=== PATIENT | female | born 1980 ===

== ENCOUNTER 2023-04-21 11:41 | Outpatient (REF) | payer MEDICAID, SELFPAY ==
[2023-04-21 13:41] LABS: Hematocrit 41.1 % (37.0-47.0); Hemoglobin 13.4 g/dl (12.0-16.0); Mean Corpuscular HGB Conc 32.6 g/dl (31.0-35.0); Mean Corpuscular Hemoglobin 28.1 pg (27.0-33.0); Mean Corpuscular Volume 86.2 fL (80.0-98.0); Mean Platelet Volume 9.7 fL (9.4-12.3); Platelet Count 286 X10*3/uL (160-400); Red Blood Count 4.77 X10*6/uL (4.20-5.50); Red Cell Distribution Width 15.3 % (11.0-16.0); White Blood Count 9.7 X10*3/uL (4.8-10.8)
[2023-04-21 14:10] LABS: Alanine Aminotransferase 31 U/L (0-31); Albumin Level 4.3 g/dL (3.5-5.0); Alkaline Phosphatase 67 U/L (39-117); Anion Gap 12 (12-20); Aspartate Amino Transferase 24 U/L (5-31); Bilirubin Total 0.3 mg/dL (0.0-1.0); Blood Urea Nitrogen 12 mg/dL (9-16); Calcium 8.9 mg/dL (8.4-10.2); Carbon Dioxide 23 mmol/L (22-29); Chloride 106 mmol/L (96-108); Cholesterol 179 mg/dL (<200); Estimated Glomerular Filt Rate > 60; Glucose Random 88 mg/dL (60-115); HDL Cholesterol 52 mg/dL (>40); LDL Cholesterol Calculated 107 mg/dL (<100); Potassium 3.9 mmol/L (3.3-5.1); Sodium 137 mmol/L (135-145); Total Protein 7.4 g/dL (6.5-8.0); Triglycerides 103 mg/dL (<150)
[2023-04-21 14:29] LABS: TSH reflex Free T4 11.51 uIU/mL (0.32-4.0)
[2023-04-21 15:10] LABS: Estimated Average Glucose 103 mg/dL; Hemoglobin A1c % 5.2 % (<6.0)
[2023-04-21 16:53] LABS: CT PCR NOT DETECTED (Not Detect.); NG PCR NOT DETECTED (Not Detect.)
[2023-04-22 04:16] LABS: Syphilis Screen Nonreactive (Nonreactive)
[2023-04-22 04:31] LABS: HBS Num1 0.33 mIU/mL (0-7.99); HBc Num1 0.09 S/CO (0.00-0.79); HBsAGNum1 0.32 S/CO (0.00-0.99); HIV AB/AG Nonreactive (Nonreactive); HIV Num 1 0.05 S/CO (0.00-0.99); Hepatitis B Core Antibody Nonreactive (Nonreactive); Hepatitis B Surface Antigen Negative (Negative); ~HepC Num1 0.12 S/CO (0.00-0.79); ~Hepatitis B Surface Antibody NONREACTIVE (Nonreactive); ~Hepatitis C Antibody Nonreactive (Nonreactive)
[2023-04-24 11:49] LABS: TS Negative Control Passed; TS Panel A 1; TS Panel B 3; TS Positive Control Passed; TSpotTB Negative (Negative)
[2023-04-24 16:34] LABS: Rubeola IgG (Measles) >300.00 AU/mL
== END 2023-04-21 11:42 | disposition home or self-care (01) ==
LOC: HO.HHCL 11:41
PROVIDERS: Visit Provider Student in an Organized Health Care Education/Training Program
DX: Z00.00 Encounter for general adult medical examination without abnormal findings (principal); Z11.4 Encounter for screening for human immunodeficiency virus [HIV]; Z11.1 Encounter for screening for respiratory tuberculosis
CPT/HCPCS: 0353U; 36415; 80053; 80061; 83036; 84439; 84443; 85027; 86481; 86704; 86706; 86735; 86762; 86765; 86780; 86787; 86803; 87340; 87389

== ENCOUNTER 2023-11-15 08:05 | Outpatient (REF) | payer MEDICAID, SELFPAY ==
--- NOTE | ~2023-11-15 | XR_ITS ---
EXAMINATION: XR CHEST CLINICAL INFORMATION: Shortness of breath and wheezing after coated COMPARISON: None available. TECHNIQUE: 2 views of the chest were obtained. FINDINGS: The lungs are well-inflated. There is no gross pneumothorax. Heart size is normal. Mild dextroscoliosis of the thoracic spine. No focal consolidation. No pleural effusion. XR/XR chest 2V IMPRESSION: No evidence of pneumonia. Electronically signed by: Nazanin Sanderson MD 12/06/2023 09:15 AM EDT
[2023-11-15 12:00] LABS: TSH reflex Free T4 0.76 uIU/mL (0.32-4.0)
[2023-11-15 12:02] LABS: Free T4 (Free Thyroxine) 0.58 ng/dL (0.71-1.85); T4 Thyroxine 3.6 ug/dL (4.5-12.0); Thyroid Stimulating Hormone 1.05 uIU/mL (0.32-4.0)
[2023-11-16 18:43] LABS: Thyroid Peroxidase Antibodies >900 IU/mL (<9)
== END 2023-11-15 08:06 | disposition home or self-care (01) ==
LOC: HO.HHCL 08:05
PROVIDERS: Referring Provider Student in an Organized Health Care Education/Training Program; Visit Provider General Practice
DX: R79.89 Other specified abnormal findings of blood chemistry (principal); R06.02 Shortness of breath
CPT/HCPCS: 36415; 71046; 84436; 84439; 84443; 86376

== ENCOUNTER 2024-01-30 10:18 | Outpatient (REF) | payer MEDICAID, SELFPAY ==
[2024-01-30 12:21] LABS: TSH reflex Free T4 8.45 uIU/mL (0.32-4.0); Thyroid Stimulating Hormone 8.45 uIU/mL (0.32-4.0)
[2024-01-30 12:22] LABS: Free T4 (Free Thyroxine) 0.72 ng/dL (0.71-1.85)
[2024-02-01 02:34] LABS: Thyroglobulin Antibodies <1 IU/mL (< or = 1)
== END 2024-01-30 10:19 | disposition home or self-care (01) ==
LOC: HO.HHCL 10:18
PROVIDERS: General Practice; Visit Provider Student in an Organized Health Care Education/Training Program
DX: E03.8 Other specified hypothyroidism (principal); E06.3 Autoimmune thyroiditis; R79.89 Other specified abnormal findings of blood chemistry
CPT/HCPCS: 36415; 84439; 84443; 86800

== ENCOUNTER 2024-02-02 07:44 | Outpatient (REF) | payer MEDICAID, SELFPAY ==
--- NOTE | ~2024-02-02 | US_ITS ---
EXAMINATION: US ABDOMEN LIMITED CLINICAL INFORMATION: Abdominal wall for mass sensation above the umbilicus and the umbilical area. Question hernias. COMPARISON: None available. TECHNIQUE: Real-time imaging of the supraumbilical area. FINDINGS: Small defect in the anterior abdominal wall roughly 8 mm through which solid contents protruding from the abdomen into the subcutaneous fat likely a hernia roughly measure 3.7 x 3.7 x 1.1 cm. This can be confirmed by cross-sectional imaging CT scan or MRI. US/US abdomen limited IMPRESSION: Ultrasound confirm solid contents protruding from the abdomen into the subcutaneous fat likely a periumbilical hernia. This can be confirmed by cross-sectional imaging CT scan or MRI. Electronically signed by: Jenn Manrique MD 02/04/2024 05:46 PM RICHARD SERVIN
== END 2024-02-02 07:45 | disposition home or self-care (01) ==
LOC: HO.US 07:44
PROVIDERS: PCP Student in an Organized Health Care Education/Training Program; Visit Provider Student in an Organized Health Care Education/Training Program
DX: R19.09 Other intra-abdominal and pelvic swelling, mass and lump (principal)
CPT/HCPCS: 76705

== ENCOUNTER 2024-07-12 11:04 | Outpatient (REF) | payer MEDICAID, SELFPAY ==
--- NOTE | ~2024-07-12 | XR_ITS ---
EXAMINATION: XR LUMBOSACRAL SPINE CLINICAL INFORMATION: pt with ongoing lower back pain COMPARISON: None available. TECHNIQUE: Three views of the lumbosacral spine. FINDINGS: There is a minimal levoconvex scoliosis apex at L3. There is a normal lordosis. There is no subluxation. There are no fractures, compression deformities, or suspicious bone lesions. There is moderate disc space narrowing at L5-S1. Disc spaces otherwise appear preserved. Normal facet alignment. No soft tissue abnormalities. XR/XR lumbar spine 2-3V IMPRESSION: 1. No acute findings of the lumbar spine. 2. Moderate disc degeneration L5-S1. Electronically signed by: Shawn Weathers MD 07/12/2024 01:03 PM EDT
--- NOTE | ~2024-07-12 | XR_ITS ---
EXAMINATION: XR ABDOMEN 2 VIEWS SUPINE ERECT HISTORY: KIDNEY STONES COMPARISON: There are no prior studies for comparison. FINDINGS: Supine and upright views of the abdomen are submitted. The bowel gas pattern is unremarkable, without evidence of mechanical obstruction. There is no free intraperitoneal gas. No abnormal calcifications are identified. There are no abnormal soft tissue masses. The bones are intact. XR/XR abdomen min 2V IMPRESSION: No suspicious calcifications are identified. Electronically signed by: Omid Jenkins MD 07/12/2024 01:00 PM EDT
--- OUTSIDE RECORDS SUMMARY | 2024-07-12 11:54 | XMS_ITS | Encounter Summary ---
Author Organization [employer] Address [address] [facility] [address] [place] [address] Care Team Providers Care Bakery Clerk Name Role Phone Joann Perez MD Primary Care Pro vider Reason for Referral * Imaging (Routine) - Pending Review Specialty Diagnoses / Procedures Referred By Connie ramos Referred To Contact Cardiology Diagnoses BAH (dyspnea on exertion) Procedures Transthoracic Echo (TTE) Complete Joann Perez MD [address] [place] [address] Phone: tel: fax: [address] Phone: tel: fax: Referral ID Status Reason Start Date Expiration Date Visits Requested Visits Authorized [id number] Pending Review Perform Procedure 07/12/2024 07/12/2025 1 1 * Imaging (Routine) - Pending Review Specialty Diagnoses / Procedures Referred By Connie ramos Referred To Contact Radiology Diagnoses Right flank pain History of kidney stones Procedures US Retroperitoneal Complete Joann Perez MD [address] [place] [address] Phone: tel: fax: [address] Phone: tel: fax: Referral ID Status Reason Start Date Expiration Date V isits Requested Visits Authorized [id number] Pending Review 07/12/2024 07/12/2025 1 1 * Imaging (Routine) - Authorized Specialty Diagnoses / Procedures Referred By Contac t Referred To Contact Radiology Diagnoses Breast cancer screening by mammogram Procedures BI Mammogram Screening Tomosynthesis Bilateral Joann Perez MD [address] [place] [phone] Phone: tel: fax: [address] Phone: tel: fax: Referral ID Status Reason Start Date Expiration Date V isits Requested Visits Authorized [id number] Authorized 07/12/2024 07/12/2025 1 1 Reason for Visit * Reason Comments CHW - Office Visit Encounter Details Date Type Department Care Team (Late st Contact Info) Description 07/12/2024 9:30 AM EDT Office Visit [facility] [address] [place] [address] [phone] Joann Perez MD [address] [place] [address] [phone] Breast cancer screening by mammogram (Primary Dx); Dietary counseling; Exercise counseling; Right flank pain; History of kidney stones; Chronic low back pain without sciatica, unspecified back pain laterality; BAH (dyspnea on exertion) Social History Tobacco Use Types Packs/Day Years Used Date Smoking Tobacco: Never Passive Smoke Exposure: Never Smokeless Tobacco: Never Alcohol Use Standard Drinks/Week Comments Yes 0 (1 standard drink = 0.6 oz pur e alcohol) social Depression Answer Date Recorded Patient Health Questionnaire-9 Score 6 01/30/2024 Patient Health Questionnaire-9 Score 6 01/30/2024 Last PHQ-9: Questionnaire Data Not on file 1 03/31/2023 Housing Stability Answer Date Recorded What is your housing situation today? I have jay mccoy 01/22/[address] you li ve. Do you have problems with any of the following? None of the above 01/22/2024 Food Insecurity Answer Date Recorded Within the past 12 months, y ou worried that your food would run out before you got money to buy more: Sometimes True 2023 Within the past 12 months,th e food you bought just didn't last and you didn't have enough money to get more: Sometimes True 01/22/2024 Transportation Answer Date Recorded In the past 12 months, has l ack of transportation kept you from medical appts, meetings, work or from getting things needed for daily living? No 01/22/2024 Utilities Answer Date Recorded In the past 12 months, has t he electric, gas, oil or water company threatened to shut off services in your home? No 01/22/2024 Depression Answer Date Recorded Patient Health Questionnaire-2 Score 2 01/30/2024 Internet Access Answer Date Recorded Internet Access Q1 Yes 01/22/2024 Internet Access Q2 Not on file 01/22/2024 Comments No Sex and Gender Information Value Date Recorded Sex Assigned at Female 03/03/2023 11:48 AM EST Legal Sex Female 3:13 PM EDT Gender Identity Female 03/03/2023 11:48 AM EST Sexual Orientation Straight 03/16/2023 2: 10 PM EST documented as of this encounter Last Filed Vital Signs Vital Sign Reading Time Taken Comments Blood Pressure 128/73 07/12/2024 9:23 AM EDT Pulse 84 07/12/2024 9:23 AM EDT Temperature 36.3 ??C (97.3 ??F) 07/12/2024 9:23 AM ED T Respiratory Rate 20 07/12/2024 9:23 AM EDT Oxygen Saturation 98% 07/12/2024 9:23 AM EDT Inhaled Oxygen Concentration - - Weight 90.3 kg (199 lb) 07/12/2024 9:23 AM EDT Height 163.8 cm (5' 4.5 ) 07/12/2024 9:23 AM EDT Body Mass Index 33.63 07/12/2024 9:23 AM EDT documented in this encounter Plan of Treatment Upcoming Encounters Date Type Department Care Team (Late st Contact Info) Description 08/09/2024 9:45 AM EDT Office Visit [facility] [address] [place], [place] [phone] Joann Perez MD [address], [place] [phone] 09/17/2024 9:45 AM EDT Office Visit [facility] [address] [place], [place] [phone] Joann Preez MD [address], [place] [phone] Scheduled Orders Name Type Priority Associated Diagnoses Order Schedule BI Mammogram Screening Tomosynthesis Bilateral Imaging Routine Breast cancer screening by mammogram Expected: 07/12/2024, Expires: 09/11/2025 XR Lumbar Spine 2-3 Views Imaging Routine Chronic low back pain without sciatica, unspecified back pain laterality Expected: 07/12/2024, Expires: 07/12/2025 US Retroperitoneal Complete Imaging Routine Right flank pain History of kidney stones Expected: 07/12/2024, Expires: 07/12/2025 XR Abdomen 2 Views Supine and Decubitus Imaging Routine Right flank pain History of kidney stones Expected: 07/12/2024, Expires: 07/12/2025 Urinalysis Complete Lab Routine History of kidney stones Expected: 07/12/2024 (Approximate), Expires: 07/12/2025 Transthoracic Echo (TTE) Complete Echocardiography Routine BAH (dyspnea on exertion) Expected: 07/12/2024 (Approximate), Expires: 07/12/2026 CBC Lab Routine BAH (dyspnea on exertion) Expected: 07/12/2024 (Approximate), Expires: 07/12/2025 Comprehensive Metabolic Panel Lab Routine BAH (dyspnea on exertion) Expected: 07/12/2024 (Approximate), Expires: 07/12/2025 T4, Free Lab Routine BAH (dyspnea on exertion) Expected: 07/12/2024 (Approximate), Expires: 07/12/2025 TSH Lab Routine BAH (dyspnea on exertion) Expected: 07/12/2024 (Approximate), Expires: 07/12/2025 XR ABDOMEN FLAT AND UPRIGHT Imaging Routine Right flank pain History of kidney stones Expected: 07/12/2024, Expires: 07/12/2025 documented as of this encounter Visit Diagnoses Diagnosis Breast cancer screening by mammogram- Primary Dietary counseling Dietary surveillance and counseling Exercise counseling Right flank pain Abdominal pain, unspecified site History of kidney stones Chronic low back pain without sciatica, unspecified back pain laterality BAH (dyspnea on exertion) Other dyspnea and respiratory abnormality documented in this encounter Additional Health Concerns Assessment Noted Time PHQ-9 Depression Total Score: 6 01/30/20 24 9:27 AM EST documented as of this encounter Care Teams Bakery Clerk Relationship Specialty Start Date End Date Joann Perez MD [address] [place] [phone] PCP - General Internal Medicine 03/16/23 documented as of this encounter
--- OUTSIDE RECORDS SUMMARY | 2024-07-12 11:54 | XMS_ITS | Encounter Summary ---
Author Organization [employer] Address [address] [facility] [address] [place] [address] Care Team Providers Care Rn Anesthetist Name Role Phone Joann Perez MD Primary Care Pro vider Reason for Visit * Reason Onset Date Comments New Patient 01/12/2023 Encounter Details Date Type Department Care Team ([facility] st Contact Info) Description 01/12/2023 Telephone [facility] [address] [place] [address] Eliu Frances MD [address] [place] [address] New Patient Social History Tobacco Use Types Packs/Day Years Used Date Smoking Tobacco: Never Assessed Comments Unknown Sex and Gender Information Value Date Recorded Sex Assigned at Female 03/03/2023 11:48 AM EST Legal Sex Female 3:13 PM EDT Gender Identity Female 03/03/2023 11:48 AM EST Sexual Orientation Straight 03/16/2023 2: 10 PM EST documented as of this encounter Miscellaneous Notes * Telephone Encounter - Verónica Rogers - 01/12/2023 3:24 PM EDT JC Friedman called pt to Offer [employer] TE[employer] appt. Pt demographics and insurance information were verified. Pt states following medical conditions: No Pt reports taking medications: No Pt given [employer] appt with Dr. Samaniego on 03/16/2023 @ 1:45 pm. Pt will be sent appt reminder card and medical release form and agrees to complete and to return to medical records prior to [employer] TE[employer]ER appt. documented in this encounter Plan of Treatment Upcoming Encounters Date Type Department Care Team (Late st Contact Info) Description 08/09/2024 9:45 AM EDT Office Visit [facility] [address] [place] [phone] Joann Perez MD [address] [place] [phone] 09/17/2024 9:45 AM EDT Office Visit [facility] [address] [place] [phone] Joann Perez MD [address] [place] [address] [phone] documented as of this encounter Visit Diagnoses Not on filedocumented in this encounter Care Teams Rn Anesthetist Relationship Specialty Start Date End Date Joann Perez MD [address] [place] [address] [phone] PCP - General Internal Medicine 03/16/23 documented as of this encounter
--- OUTSIDE RECORDS SUMMARY | 2024-07-12 11:54 | XMS_ITS | Encounter Summary ---
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) Social History Tobacco Use Types Packs/Day Years Used Date Smoking Tobacco: Never Smokeless Tobacco: Never Alcohol Use Standard Drinks/Week Comments Yes 0 (1 standard drink = 0.6 oz pur e alcohol) social Depression Answer Date Recorded Patient Health Questionnaire-9 Score 15 03/16/2023 Patient Health Questionnaire-9 Score 15 03/16/2023 Last PHQ-9: Questionnaire Data Not on file 1 05/17/2022 Depression Answer Date Recorded Patient Health Questionnaire-2 Score 4 03/16/2023 Comments No Sex and Gender Information Value Date Recorded Sex Assigned at Female 03/03/2023 11:48 AM EST Legal Sex Female 3:13 PM EDT Gender Identity Female 03/03/2023 11:48 AM EST Sexual Orientation Straight 03/16/2023 2 :10 PM EST documented as of this encounter Miscellaneous Notes * Result Encounter Note - Joann De La Cruz MD - 11/17/2023 8:41 AM EDT As in telephone encounter today documented in this encounter Plan of Treatment Upcoming Encounters Date Type Department Care Team (Late st Contact Info) Description 08/09/2024 9:45 AM EDT Office Visit [facility] [address] [place] [address] Joann Perez MD [address] [place] [address] 09/17/2024 9:45 AM EDT Office Visit [facility] [address] [place] [address] Joann Perez MD [address] [place] [address] documented as of this encounter Procedures Procedure Name Priority Date/Time Associated Diagnosis Comments TSH W/REFLEX TO FT4 Routine 01/30/2024 1 0:21 AM EST 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 documented in this encounter Results * (ABNORMAL) TSH W/Reflex to FT4 (01/30/2024 10:21 AM EST) TSH reflex Free T4 8.45(H) 0.32 - 4.0 uIU/mL [facility] Blood Venous blood specimen / Unknown 01/30/2024 10:21 AM EST 01/30/2024 11:32 AM EST us Kelsie Patino MD LAB BLOOD ORDERABLES Final Res ult [facility] [address] [place] [address] [phone] documented in this encounter Visit Diagnoses Diagnosis 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
--- OUTSIDE RECORDS SUMMARY | 2024-07-12 11:54 | XMS_ITS | Encounter Summary ---
Author Organization [employer] Address [address] [place] [address] Care Team Providers Care Customer Program Manager Name Role Phone Joann Perez MD Primary Care Pro vider Encounter Details Date Type Department Care Team (Latest Contact Info) Description 07/12/2024 Travel Social History Tobacco Use Types Packs/Day Years [...] PM EST documented as of this encounter Plan of Treatment Upcoming Encounters Date Type Department Care Team (Late st Contact Info) Description 08/09/2024 9:45 AM EDT Office Visit [facility] [address] [place] [phone] Joann Perez MD [address] [place] [phone] 09/17/2024 9:45 AM EDT Office Visit [address] [address] Joann Perez MD [address] [place] [phone] documented as of this encounter Visit Diagnoses Not on filedocumented in this encounter Additional Health Concerns Assessment Noted Time PHQ-9 Depression Total Score: 6 01/30/20 24 9:27 AM EST documented as of this encounter Care Teams Customer Program Manager Relationship Specialty Start Date End Date Joann Perez MD [address] [place] [phone] PCP - General Internal Medicine 03/16/23 documented as of this encounter
--- OUTSIDE RECORDS SUMMARY | 2024-07-12 11:54 | XMS_ITS | Encounter Summary ---
Author Organization [employer] Address [address] [place] [address] Care Team Providers Care Coyote Hunter Name Role Phone Joann Perez MD Primary Care Pro vider Encounter Details Date Type Department Care Team (Late st Contact Info) Description 05/10/2024 Orders Only [facility] [address] [place], [place] [phone] Kelsie Patino MD [address] [place], [place] [phone] Left upper quadrant abdominal pain Social History Tobacco Use Types Packs/Day Years [...] Description 08/09/2024 9:45 AM EDT Office Visit [facility] [address] [place] [phone] Joann Perez MD [address] [place] [phone] 09/17/2024 9:45 AM EDT Office Visit [address] [address] Joann Perez MD [address] [place] [phone] documented as of this encounter Visit Diagnoses Diagnosis Left upper quadrant abdominal pain documented in this encounter Additional Health Concerns Assessment Noted Time PHQ-9 Depression Total Score: 6 01/30/20 24 9:27 AM EST documented as of this encounter Care Teams Coyote Hunter Relationship Specialty Start Date End Date Joann Perez MD [address] [place] [phone] PCP - General Internal Medicine 03/16/23 documented as of this encounter
--- OUTSIDE RECORDS SUMMARY | 2024-07-12 11:54 | XMS_ITS | Clinical Summary ---
Author Organization [employer] Address [address] [place] [address] Care Team Providers Care Airframe And Powerplant Technician Name Role Phone Joann Perez MD Primary Care Pro vider Allergies No known active allergies Medications * This document contains information received from the source organization and may not represent a complete record from that organization. multivitamin (Theragran) tablet Take 1 tablet by mouth in the morning. Active albuterol 108 (90 Base) MCG/ACT inhalerIndicati ons:Shortness of breath Inhale 2 puffs every 6 (six) hours if needed for wheezing. 18 g 3 4 025 Active ibuprofen 800 MG tabletIndicatio ns:Acute right-sided low back pain without sciatica Take 1 tab by mouth tid as needed pain with food 90 tablet 4 Active Additional Information Patient not taking.Reported on 03/06/2024 Diclofenac Sodium 1 % gelIndications: Chronic low back pain without sciatica, unspecified back pain laterality Apply 1 Application topically if needed each day (lower back pain). 50 g 1 4 Active Additional Information Patient not taking.Reported on 03/06/2024 acetaminophen (Tylenol) 500 MG tabletIndicatio ns:Chronic right-sided low back pain with right-sided sciatica Take 1 or 2 tablets as needed for pain, up to 3 times daily. Try to avoid taking more than 4 days per week. 60 tablet 4 Active levothyroxine (Synthroid, Levoxyl) 100 MCG tabletIndicatio ns:Hypothyroidi sm due to Taty's thyroiditis TAKE 1 TABLET BY MOUTH DAILY BEFORE BREAKFAST 90 tablet 1 5 Active lidocaine (Lidoderm) 5 % patchIndication s:Acute right-sided low back pain without sciatica APPLY 1 PATCH TOPICALLY TO SKIN, LEAVE ON FOR 12 HOURS AND OFF FOR 12 HOURS DIRECTED 30 patch 1 5 Active tamsulosin (Flomax) 0.4 MG 24 hr capsule Take 1 capsule (0.4 mg) by mouth at bedtime. 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 I advised increase p.o. fluid intake, take Flomax nightly and order renal ultrasound Rx for tramadol 25 to 50 mg 3 times daily as needed pain along with Tylenol, caution with constipation, dizziness and somnolence. Advised to filter urine and return to clinic if she develops UTI symptoms or worsening of pain Sore throat 05/07/2024 Assessment & Plan (05/07/2024 6:57 PM EST): She seems to have mild URI symptoms, advised to take Tylenol as needed, increase p.o. 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 Obesity (BMI 30-39.9) 03/17/2023 Health care maintenance 03/17/2023 Resolved Problems Problem Noted Date Diagnosed Date Resolved Date Depression with suicidal ideation 03/17/2023 01/30/2024 Assessment & Plan (03/21/2023 8:44 AM EST): New/Additional Services needed PCP management On-site non-integrated BH services , Behavioral Health Integration Plan Internal Follow up with [facility], Cold handoff to [facility], Patient Self Plan Patient to utilize skills provided in intervention , Patient to reach out to [facility] team as needed, Comply with medication , and Patient to reach out to [facility] as needed Symptoms: depressed mood, loss of interests/pleasure , changes in sleep difficulty staying asleep , change in appetite or weight overeating, thoughts about or suicide, fatigue/loss of energy, SI w/ structured plan for suicide but not intent, Flashbacks, Intrusive trauma memories and thoughts, Nightmares/night terrors, Hypervigilance, and Increased startle response, and SI Encounters Date Type Department Care Team Description 07/12/2024 9:30 AM EDT Office Visit [facility] [address] [phone] Joann Perez MD Breast cancer screening by mammogram (Primary Dx); Dietary counseling; Exercise counseling; Right flank pain; History of kidney stones; Chronic low back pain without sciatica, unspecified back pain laterality; BAH (dyspnea on exertion) 07/12/2024 Travel 07/11/2024 Telephone [facility] [address] [place] [phone] Joann Perez MD chart prep 07/04/2024 Patient Outreach [facility] [address] [place] [place] [phone] Joann Perez MD Care Coordination ([facility] outreach for SDOH PT-1 and food needs-referral completed /) 07/04/2024 Patient Outreach [facility] [address] [place] [place] [phone] Bertha Parekh Pre-visit Planning (SDOH screening positive and Tobacco screening negative) 05/31/2024 Population Health Risk Score [facility] [address] [phone] Provider, Population Health Generic 05/31/2024 Refill [facility] [address] [place] [address] Joann Perez MD Acute right-sided low back pain without sciatica 05/10/2024 Orders Only [facility] [address] [place] [address] [phone] Kelsie Patino MD Left upper quadrant abdominal pain 05/10/2024 Telephone [facility] [address] [place] [address] Joann Perez MD TelephoneCall - Medication 05/08/2024 Telephone [facility] [address] [place] [address] Laura Collins OD 05/08/2024 Telephone [facility] [address] [place] [address] Melanie Shi MA June Recall 05/07/2024 6:20 PM EST Office Visit [facility] [address] [place] [address] Lea Horowitz MD Left upper quadrant abdominal pain (Primary Dx); Sore throat 04/22/2024 Refill [facility] [address] [place] [address] Joann Perez MD 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 from Last 3 Months Immunizations Name Administration Dates Next Due Influenza injectable quadriv alent preservative free 03/16/2023 Pfizer Covid-19 Vaccine 12+ 03/16/2023 Sinopharm SARS-CoV-2 Vaccination 10/07/2021,03/0 04/2021,01/12/2021 Tdap 03/16/2023 Family History Medical History Relation Name Comments HTN,DM2 Father Prostate cancer Father HTN Mother Thrombocytopenia- autoimmune Son Relation Name Status Comments Father Mother Son Social History Tobacco Use Types Packs/Day Years Used Date Smoking Tobacco: Never Passive Smoke Exposure: Never Smokeless Tobacco: Never Tobacco Cessation:Counseling Given: Not Answered Alcohol Use Standard Drinks/Week Comments Yes 0 (1 standard drink = 0.6 oz pur e alcohol) social Depression Answer Date Recorded Patient Health Questionnaire-9 Score 6 01/30/2024 Patient Health Questionnaire-9 Score 6 01/30/2024 Last PHQ-9: Questionnaire Data Not on file 1 03/31/2023 Housing Stability Answer Date Recorded What is your housing situation today? I have jaycandace mccoy 01/22/[address] you [...] Orientation Straight 03/16/2023 2: 10 PM EST Last Filed Vital Signs Vital Sign Reading [...] Mass Index 33.63 07/12/2024 9:23 AM EDT Plan of Treatment Upcoming Encounters Date Type Department Care Team (Late st Contact Info) Description 08/09/2024 9:45 AM EDT Office Visit [facility] [address] [place] [phone] Joann Perez MD [address] [place] [address] 09/17/2024 9:45 AM EDT Office Visit [facility] [address] [place], [place] [phone] Joann Perez MD [address] [place], [place] [phone] Health Maintenance Due Date Last Done Comments Family Planning (PISQ) 1996 Hepatitis B Vaccines (1 of 3 - 19+ 3-dose series) 2000 Pap Smear 2002 Cervical Cancer Screening 07/24/2011 HPV/Cotest 07/24/2011 Mammogram 2021 COVID-19 Vaccine ( season) 2023 03/16/2023, 10/07/2021, 05/19/2021, Additional history exists Influenza Vaccine (#1) 2023 03/16/2023 Dental Oral Exam 09/05/2024 03/06/2024 Dental Prophylaxis 09/05/2024 03/06/2024 Alcohol/Substance Use Screening 01/29/2025 01/30/2024 Depression Screening 01/29/2025 01/30/2024, 01/30/20 Dental X-Ray: Bitewings 03/07/2025 03/06/2024 Tobacco Screening 05/07/2025 05/07/2024 SDOH Screening 07/04/2025 07/04/2024 Dental X-Ray: Full Mouth 08/11/2026 08/11/2023 Lipid Panel 04/21/2028 04/21/2023 Zoster Vaccines (1 of 2) 07/24/2031 DTaP/Tdap/Td Vaccines (2 - Td or Tdap) 03/16/2033 03/16/2023 RSV Patients and Patients Aged 60 years or older (1 - 1-dose 75+ series) 2056 HIV Screening Completed 04/21/2023 Hepatitis C Screening Completed 04/21/2023 HIB Vaccines Aged Out No longer eligi ble based on patient's age to complete this topic HPV Vaccines Aged Out No longer eligi ble based on patient's age to complete this topic Hepatitis A Vaccines Aged Out No long er eligible based on patient's age to complete this topic IPV Vaccines Aged Out No longer eligi ble based on patient's age to complete this topic Meningococcal Vaccine Aged Out No sandra lucia eligible based on patient's age to complete this topic Pneumococcal Vaccine: Pediatrics (0 to 5 Years) and At-Risk Patients (6 to 49) Years) Aged Out No longer eligible based on patient's age to complete this topic RSV under 20 months Aged Out No longe r eligible based on patient's age to complete this topic Rotavirus Vaccines Aged Out No longer eligible based on patient's age to complete this topic Procedures Procedure Name Priority Date/Time Associated Diagnosis Comments POCT INFLUENZA B (ID NOW RAPID MOLECULAR) Routine 05/07/2024 6:48 PM EST Sore throat POCT COVID-19 AG JAIMES ID NOW Routine 05/07/2024 6:47 PM EST Sore throat POCT INFLUENZA A (ID NOW RAPID MOLECULAR) Routine 05/07/2024 6:47 PM EST Sore throat POCT URINALYSIS DIPSTICK Routine 05/07/2024 6:42 PM EST Left upper quadrant abdominal pain POCT , URINE Routine 05/07/2024 6:41 PM EST Left upper quadrant abdominal pain PROPHYLAXIS - ADULT Routine 03/06/2024 8 :00 AM EST Dental calculus Dental plaque Tartar deposits on teeth BITEWINGS - 4 RADIOGRAPHIC IMAGES Routine 03/06/2024 8:00 AM EST PERIODIC ORAL EVALUATION - ESTABLISHED PATIENT Routine 03/06/2024 8:00 AM EST PANORAMIC RADIOGRAPHIC IMAGE Routine 08/11/2023 8:30 AM EDT HEPATITIS C AB W/REFL TO HCV RNA, QN, PCR Routine 04/21/2023 11:44 AM EST Annual physical exam HIV 1/2 ANTIGEN/ANTIBODY, FOURTH GENERATION W/RFL Routine 04/21/2023 11:44 AM EST Annual physical exam LIPID PANEL, STANDARD Routine 04/21/2023 11:44 AM EST Annual physical exam from Last 3 Months or Most Recently Relevant to Health Maintenance Results * POCT Rapid Influenza B JAIMES ID NOW (05/07/2024 6:48 PM EST) Pathologist [facility] Influenza B Negative Negative, Indeterminate [facility] QC Media Lot # [id number] [facility] Lot# Expiration Date [facility] Swab 05/07/2024 6:48 PM EST Lea Horowitz MD POINT OF CARE TEST ENTER /EDIT ORDERABLES Final Result Performing Organization Address [facility]/ZIP Co de Phone Number [facility] [address] [place] [phone] * POCT Rapid Influenza A JAIMES ID NOW (05/07/2024 6:47 PM EST) [facility] Influenza A Negative Negative, Indeterminate [facility] QC Media Lot # [id number] [facility] Lot# Expiration Date [facility] Swab 05/07/2024 6:47 PM EST Lea Horowitz MD POINT OF CARE TEST ENTER /EDIT ORDERABLES Final Result Performing Organization Address [facility]/ZIP Co de Phone Number [facility] [address] [place] [phone] * POCT Rapid Covid-19 JAIMES ID NOW (05/07/2024 6:47 PM EST) [facility] Coronavirus Antigen PCR Negative Negative, Indeterminate, None Detected, Invalid, Specimen unsatisfactory for evaluation, Weakly Positive QC Media Lot # [id number] Lot# Expiration Date Swab 05/07/2024 6:47 PM EST Lea Horowitz MD POINT OF CARE TEST ENTER /EDIT ORDERABLES Final Result * (ABNORMAL) POCT Urinalysis (05/07/2024 6:42 PM EST) Color, UA Light Yellow Clarity, UA Clear Glucose, UA Negative Bilirubin, UA Negative Ketones, UA Negative Spec Grav, UA 1.020 Blood, UA Positive(A) Negative, None Detected Comment:Trace -I ysed pH, UA 6.0 Protein, UA Negative Urobilinogen, UA 0.2 Leukocytes, UA Negative Negative, Rare, Trace Nitrite, UA Negative Negative, None Detected Appearance, UA clear QC Media Lot # [id number] Lot# Expiration Date ,025 Urine 05/07/2024 6:42 PM EST Lea Horowitz MD POINT OF CARE TEST ENTER /EDIT ORDERABLES Final Result * POCT Urine (05/07/2024 6:41 PM EST) Pathologist [facility] Preg Test, Ur Negative Negative, Indeterminate, None Detected, Invalid, Specimen unsatisfactory for evaluation, Weakly Positive QC Media Lot # [id number] Lot# Expiration Date 1312,026 Urine 05/07/2024 6:41 PM EST Result [facility] Lea Horowitz MD POINT OF CARE TEST ENTER /EDIT ORDERABLES Final Result * Hepatitis C Antibody with Reflex to HCV, RNA, Quantitative, Real-Time PCR (04/21/2023 11:44 AM EST) Pathologist [facility] Hepatitis C Antibody Nonreactive Nonreactive [facility] Comment:Antibodies to HCV no t detected; does not exclude early acuteHCV infection. Blood Venous blood specimen / Unknown 04/21/2023 11:44 AM EST 04/21/2023 1:10 PM EST Joann De La Cruz MD LAB BLOOD ORDERAB LES Final Result [facility] [address] [place] [phone] * HIV-1/2 Antigen and Antibodies, Fourth Generation, with Reflexes (04/21/2023 11:44 AM EST) HIV AB/AG Nonreactive Nonreactive [facility] Comment:HIV-1 p24 Ag and/or HIV-1/HIV-2 Ab not detected.A test result that is nonreactive does not exclude thepossibility of exposure to or infection with HIV-1 and/orHIV-2. Nonreactive results in this assay for individualswith prior exposure to HIV-1 and/or HIV-2 may be due toantigen and antibody levels that are below the limit ofdetection of this assay.The Mobile [employer] HIV Ag/Ab Combo assay result andsupplemental assay results should be interpreted inconjunction with the patient's clinical presentation,history and other laboratory results. If the results areinconsistent with clinical evidence, additional testing issuggested to confirm the result. Blood Venous blood specimen / Unknown 04/21/2023 11:44 AM EST 04/21/2023 1:10 PM EST us Joann De La Cruz MD LAB BLOOD ORDERAB LES Final Result [facility] [address] [place] [phone] * (ABNORMAL) Lipid Panel, Standard (04/21/2023 11:44 AM EST) Triglycerides 103 <150 mg/dL [facility] Comment:Desirable Triglyceri de: less than 150 mg/dLBorderline High Triglyceride 150-199 mg/dLHigh Triglyceride: 200-499 mg/dLVery High Triglyceride: greater than or equal to 5OO mg/dL Cholesterol 179 <200 mg/dL [facility] Comment:Desirable Cholestero l: less than 200 mg/dLBorderline High Cholesterol: 200-239 mg/dLHigh Cholesterol: greater than 239 mg/dL LDL Cholesterol Calculated 107(H) <100 mg/dL [facility] Comment:Desirable LDL: less than 100 mg/dLNear Optimal/Above Optimal LDL: 110- 129 mg/dLBorderline High LDL: 130-159 mg/dLHigh LDL: 160-189 mg/dLVery High LDL: greater than or equal to 190 mg/dL HDL Cholesterol 52 >40 mg/dL [facility] Comment:Desirable HDL: great er than 40 mg/dL Note: This HDL assay may give artificially low results in patients with liver disease. Blood Venous blood specimen / Unknown 04/21/2023 11:44 AM EST 04/21/2023 1:10 PM EST us Joann De La Cruz MD LAB BLOOD ORDERAB LES Final Result [facility] [address] [place] [phone] from Last 3 Months or Most Recently Relevant to Health Maintenance Insurance [facility] STAND ADULT Care Teams Airframe And Powerplant Technician Relationship Specialty Start Date End Date Joann Perez MD [address] [place] [phone] PCP - General Internal Medicine 03/16/23
--- OUTSIDE RECORDS SUMMARY | 2024-07-12 11:54 | XMS_ITS | Encounter Summary ---
Author Organization [employer] Address [address] [place] [address] Care Team Providers Care Chicken Dresser Name Role Phone Joann Perez MD Primary Care Pro vider Reason for Visit * Reason Onset Date Comments chart prep 07/11/2024 Encounter Details Date Type Department Care Team ([facility] st Contact Info) Description 07/11/2024 Telephone [facility] [address] [place] [address] Joann Perez MD [address] [place] [phone] chart prep Social History Tobacco Use Types Packs/Day Years [...] encounter Miscellaneous Notes * Telephone Encounter - Melanie Shi MA - 07/11/2024 3:54 PM EDT Chart Prep Labs: done Images: done Vaccines due: Covid Due, Hep B Due, and Flu Due Referrals: Completed Screenings: PAP and Mammogram Overdue care gaps: None documented in this encounter Plan of Treatment Upcoming Encounters Date Type Department Care Team (Late st Contact Info) Description 08/09/2024 9:45 AM EDT Office Visit [facility] [address] [place] [phone] Joann Perez MD [address] [place] [phone] 09/17/2024 9:45 AM EDT Office Visit [facility] [address] [place] [phone] Joann Perez MD [address] [place] [phone] documented as of this encounter Visit Diagnoses Not on filedocumented in this encounter Additional Health Concerns Assessment Noted Time PHQ-9 Depression Total Score: 6 01/30/20 9:27 AM EST documented as of this encounter Care Teams Chicken Dresser Relationship Specialty Start Date End Date Joann Perez MD [address] [place] [phone] PCP - General Internal Medicine 03/16/23 documented as of this encounter
[2024-07-12 13:23] LABS: Hematocrit 41.1 % (37.0-47.0); Hemoglobin 13.4 g/dl (12.0-16.0); Mean Corpuscular HGB Conc 32.6 g/dl (31.0-35.0); Mean Platelet Volume 10.2 fL (9.4-12.3); Platelet Count 238 X10*3/uL (160-400); Red Blood Count 4.78 X10*6/uL (4.20-5.50); Red Cell Distribution Width 14.6 % (11.0-16.0); White Blood Count 8.9 X10*3/uL (4.8-10.8)
== END 2024-07-12 11:05 | disposition home or self-care (01) ==
LOC: HO.HHCL 11:04
PROVIDERS: Visit Provider Student in an Organized Health Care Education/Training Program
DX: R06.09 Other forms of dyspnea (principal); M54.50 Low back pain, unspecified; G89.29 Other chronic pain; R10.9 Unspecified abdominal pain; M51.379 Other intervertebral disc degeneration, lumbosacral region without mention of lumbar back pain or lower extremity pain
CPT/HCPCS: 36415; 72100; 74019; 80053; 84439; 84443; 85027

== ENCOUNTER → 2024-07-12 11:41 | Outpatient (BNV) | payer MEDICAID, SELFPAY | PROVIDERS: Visit Provider Radiology Diagnostic Radiology | DX: N20.0 Calculus of kidney (principal); M51.370 Other intervertebral disc degeneration, lumbosacral region with discogenic back pain only | CPT/HCPCS: 72100; 74019 ==

== ENCOUNTER 2024-07-18 08:49 | Outpatient (REF) | payer MEDICAID, SELFPAY ==
--- OUTSIDE RECORDS SUMMARY | 2024-07-18 09:13 | XMS_ITS | Encounter Summary ---
Author Organization [employer] Address [address] [place] [address] Care Team Providers Care Communication Equipment Mechanic Name Role Phone Joann Perez MD Primary Care Pro vider Reason for Visit * Reason Onset Date Comments New Patient 01/12/2023 Encounter Details Date Type Department Care Team ([facility] st Contact Info) Description 01/12/2023 Telephone [facility] [address] [place] [address] Eliu Frances MD [address] [place] [address] New Patient Social History Tobacco Use Types [...] EDT JC Friedman called pt to Offer ELECTRICAL SIGN WIRER HELPER appt. Pt demographics and insurance information were verified. Pt states following medical conditions: No Pt reports taking medications: No Pt given ELECTRICAL SIGN WIRER HELPER appt with Dr. Samaniego on 03/16/2023 @ 1:45 pm. Pt will be sent appt reminder card and medical release form and agrees to complete and to return to medical records prior to ELECTRICAL SIGN WIRER HELPER appt. documented in this encounter Plan of Treatment Upcoming Encounters Date Type Department Care Team (Late st Contact Info) Description 08/09/2024 9:45 AM EDT Office Visit [facility] [address] [place] [phone] Joann Perez MD [address] [place] [phone] 09/17/2024 9:45 AM EDT Office Visit [facility] [address] [place] [phone] Joann Perez MD [address] [place] [address] [phone] documented as of this encounter Visit Diagnoses Not on filedocumented in this encounter Care Teams Communication Equipment Mechanic Relationship Specialty Start Date End Date Joann Perez MD [address] [place] [address] [phone] PCP - General Internal Medicine 03/16/23 documented as of this encounter
--- OUTSIDE RECORDS SUMMARY | 2024-07-18 09:13 | XMS_ITS | Encounter Summary ---
Author Organization [employer] Address [address] [place] [address] Care Team Providers Care Paperboard Machine Operator Name Role Phone Joann Perez MD Primary Care Pro vider Reason for Visit * Reason Onset Date Comments Record Request [facility] 07/16/2024 Encounter Details Date Type Department Care Team ([facility] st Contact Info) Description 07/16/2024 Telephone [facility] [address] [place] [address] Joann Perez MD [address] [place] [address] Record Request [facility] Social History Tobacco Use Types Packs/Day Years [...] encounter Miscellaneous Notes * Telephone Encounter - Kimberly Bran MA - 07/16/2024 9:16 AM EDT FABI is requesting last notes from PAP Smear. documented in this encounter Plan of Treatment Upcoming Encounters Date Type Department Care Team (Late st Contact Info) Description 08/09/2024 9:45 AM EDT Office Visit [facility] [address] [place] [phone] Joann Perez MD [address] [place] [phone] 09/17/2024 9:45 AM EDT Office Visit [facility] [address] [place] [phone] Joann Perez MD [address] [place] [phone] documented as of this encounter Visit Diagnoses Not on filedocumented in this encounter Additional Health Concerns Assessment Noted Time PHQ-9 Depression Total Score: 6 01/30/20 24 9:27 AM EST documented as of this encounter Care Teams Paperboard Machine Operator Relationship Specialty Start Date End Date Joann Perez MD [address] [place] [phone] PCP - General Internal Medicine 03/16/23 documented as of this encounter
--- OUTSIDE RECORDS SUMMARY | 2024-07-18 09:13 | XMS_ITS | Encounter Summary ---
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 (Primary Dx) [...] Description 08/09/2024 9:45 AM EDT Office Visit [facility] [address] [place] [address] Joann Perez MD [address] [place] [address] 09/17/2024 9:45 AM EDT Office Visit [facility] [address] [place] [address] Joann Perez MD [address] [place] [address] documented as of this encounter Procedures Procedure Name Priority Date/Time Associated Diagnosis Comments TSH W/REFLEX TO FT4 Routine 01/30/2024 1 0:21 AM EST 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 documented in this encounter Results * (ABNORMAL) TSH W/Reflex to FT4 (01/30/2024 10:21 AM EST) TSH reflex Free T4 8.45(H) 0.32 - 4.0 uIU/mL [facility] Blood Venous blood specimen / Unknown 01/30/2024 10:21 AM EST 01/30/2024 11:32 AM EST us Kelsie Patino MD LAB BLOOD ORDERABLES Final Res ult [facility] [address] [place] [phone] documented in this encounter Visit Diagnoses Diagnosis 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
--- OUTSIDE RECORDS SUMMARY | 2024-07-18 09:13 | XMS_ITS | Clinical Summary ---
Author Organization [employer] Address 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 fluids Should be out of work tomorrow return to clinic if she develops worsening fever or chills Depression with suicidal ideation 03/17/2023 01/30/2024 Assessment & Plan (03/21/2023 8:44 AM EST): New/Additional Services needed PCP management On-site non-integrated services , Behavioral Health Integration Plan Internal Follow up with [facility], Cold handoff to [facility], Patient Self Plan Patient to utilize skills provided in intervention , Patient to reach out to [facility] team as needed, Comply with medication , [...] Encounters Date Type Department Care Team Description 07/18/[address] [address] Joann Perez MD 07/16/[address] [address] Joann Perez MD Record Request [facility] 07/13/[address] [address] Kasey Vargas, ALEXANDER Results; Lab Orders 07/12/2024 9:30 AM EDT Office Visit [address] [address] Joann Perez MD Breast cancer screening by mammogram (Primary Dx); Dietary counseling; Exercise counseling; Right flank pain; History of kidney stones; Chronic low back pain without sciatica, unspecified back pain laterality; BAH (dyspnea on exertion); Abdominal wall anomaly; 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 [address] [place] [phone] Patel Parekhbassemadan Pre-visit Planning (SDOH screening positive and Tobacco screening negative) 05/31/2024 Population Health Risk Score Community Care [facility] () Department [address] [place] [phone] Provider, Population Health Generic 05/31/[address] [facility] [address] [place] [phone] Joann Perez MD Acute right-sided low back pain without sciatica 05/10/[address] [facility] [address] [place] [phone] Kelsie Patino MD Left upper quadrant abdominal pain 05/10/[address] [facility] [address] [place] [phone] Joann Perez MD TelephoneCall - Medication 05/08/[address] [facility] [address] [place] [phone] Laura Collins, SHANITA 05/08/[address] [facility] [address] [place] [phone] Melanie Shi MA June05/07/2024 6:20 PM EST Office Visit [facility] [address] [place] [phone] Lea Horowitz MD Left upper quadrant abdominal pain (Primary Dx); Sore throat 04/22/[address] [facility] [address] [place] [address] [phone] Joann Perez MD Hypothyroidism due to Taty's [...] Description 08/09/2024 9:45 AM EDT Office Visit [facility] [address] [place] [address] [phone] Joann Perez MD [address] [place] [address] [phone] 09/17/2024 9:45 AM EDT Office Visit [facility] [address] [place] [phone] Joann Perez MD [address] [place] [address] [phone] Health Maintenance Due Date Last Done Comments [...] Procedure Name Priority Date/Time Associated Diagnosis Comments ECG 12-LEAD Routine 07/12/2024 3:37 PM EDT BAH (dyspnea on exertion) POCT URINALYSIS DIPSTICK Routine 07/12/2024 2:57 PM EDT History of kidney stones XR ABDOMEN 2V+ Routine 07/12/2024 11:44 AM EDT XR LUMBAR SPINE 2-3 VIEWS Routine 07/12/2024 11:41 AM EDT Chronic low back pain without sciatica, unspecified back pain laterality CANCELLED CHEMISTRY Routine 07/12/2024 1 1:07 AM EDT CBC Routine 07/12/2024 11:07 AM EDT BAH (dyspnea on exertion) CANCELLED URINE Routine 07/12/2024 12:00 AM EDT POCT INFLUENZA B (ID NOW RAPID MOLECULAR) [...] Recently Relevant to Health Maintenance Results * ECG 12 lead (07/12/2024 3:37 PM EDT) Narrative Joann Perez MD - 07/12/2024 3:37 PM EDT -EKG today NSR,HR 71x', Qtc 389, normal us Joann De La Cruz MD ECG ORDERABLES F inal Result * (ABNORMAL) POCT urinalysis dipstick manually resulted (07/12/2024 2:57 PM EDT) Only the most recent of2 resultswithin the time period is included. Color, UA Yellow Clarity, UA Clear Glucose, UA Negative Bilirubin, UA Negative Ketones, UA Negative Spec Grav, UA 1.020 Blood, UA Positive(A) Negative, None Detected pH, UA 7.0 Protein, UA Negative Urobilinogen, UA 1.0 Leukocytes, UA Negative Negative, Rare, Trace Nitrite, UA Negative Negative, None Detected Appearance, UA yellow QC Media Lot # [id number] Lot# Expiration Date [id number] Urine 07/12/2024 2:57 PM EDT us Joann De La Cruz MD POINT OF CARE ADORE T ENTER/EDIT ORDERABLES Final Result * XR Abdomen 2 View minimum (07/12/2024 11:44 AM EDT) Anatomical Region Laterality Modality Abdomen Radiographic Poonam ging 07/12/2024 11:4 4 AM EDT Narrative 07/12/2024 1:03 PM EDT ? [facility] ?[address] ?[place] [address] ?XRay Report ? Signed ? Patient: Dai Cast,Starr B ?MR# ?? : [id number] ? : 1980 ?Acct:[id number] ? Age/Sex: 43 / F ?ADM Date: 04/25/25 ? Loc: HO.HHCL ? Attending Dr: Joann De La Cruz MD ? Ordering Physician: Joann Perez MD ?? Date of Service: 07/12/24 ?? Procedure(s): XR abdomen min 2V ?? Accession Number(s): [id number] ? cc: Joann Perez MD ? EXAMINATION: ??XR ABDOMEN 2 VIEWS SUPINE ERECT ? HISTORY: KIDNEY STONES ? COMPARISON: There are no prior studies for comparison. ? FINDINGS: ??Supine and upright views of the abdomen are submitted. ?? The ?? bowel gas pattern is unremarkable, without evidence of mechanical ?? obstruction. There is no free intraperitoneal gas. ?? No abnormal ?? calcifications are identified. ?? There are no abnormal soft tissue ?? masses. ??The bones are intact. ? XR/XR abdomen min 2V ?? IMPRESSION: ?? No suspicious calcifications are identified. ? Electronically signed by: ??Omid Jenkins MD ??07/12/2024 01:00 PM EDT ? Dictated By: ?Omid Jenkins MD ? Signed By: ?<Electronically signed by Omid Jenkins MD in OV> ?07/12/24 1300 ? DD/ 1144 ? TD/TT: 07/12/24 1200 ? Commercial Truck Driver: ? Procedure Note Gilberto, Little - 07/12/[address] [address] XRay Report Signed Patient: Starr Hong BMR# : [id number] : 1980Acct:[id number] Age/Sex: 43 / FADM Date: 07/12/24 Loc: HO.HHCL Attending Dr: Joann De La Cruz MD Ordering Physician: Joann Perez MD Date of Service: 07/12/24 Procedure(s): XR abdomen min 2V Accession Number(s): [id number] cc: Joann Perez MD EXAMINATION: XR ABDOMEN 2 VIEWS SUPINE ERECT HISTORY: KIDNEY STONES COMPARISON: There are no prior studies for comparison. FINDINGS: Supine and upright views of the abdomen are submitted. The bowel gas pattern is unremarkable, without evidence of mechanical obstruction. There is no free intraperitoneal gas. No abnormal calcifications are identified. There are no abnormal soft tissue masses. The bones are intact. XR/XR abdomen min 2V IMPRESSION: No suspicious calcifications are identified. Electronically signed by: Omid Jenkins MD 07/12/2024 01:00 PM EDT RP Dictated By: Omid Jenkins MD Signed By: <Electronically signed by Omid Jenkins MD in OV> 07/12/24 1300 DD/ 1144 TD/TT: 07/12/24 1200 Commercial Truck Driver: us Joann De La Cruz MD IMG XR PROCEDURES Edited Result - Final * XR Lumbar Spine 2-3 Views (07/12/2024 11:41 AM EDT) Anatomical Region Laterality Modality Spine, L-spine Radiographic Poonam ging 07/12/2024 11:4 1 AM EDT Narrative 07/12/2024 1:06 PM EDT ? [facility] ?[address] ?[place] [address] ?XRay Report ? Signed ? Patient: Starr Hong B ?MR# ?? : [id number] ? : 1980 ?Acct:[id number] ? Age/Sex: 43 / F ?ADM Date: 07/12/24 ? Loc: HO.HHCL ? Attending Dr: Joann De La Cruz MD ? Ordering Physician: Joann Perez MD ?? Date of Service: 07/12/24 ?? Procedure(s): XR lumbar spine 2-3V ?? Accession Number(s): [id number] ? cc: Joann Perez MD ? EXAMINATION: ?? XR LUMBOSACRAL SPINE ? CLINICAL INFORMATION: ?? pt with ongoing lower back pain ? COMPARISON: ?? None available. ? TECHNIQUE: ?? Three views of the lumbosacral spine. ? FINDINGS: ?? There is a minimal levoconvex scoliosis apex at L3. There is a normal ?? lordosis. There is no subluxation. ?? There are no fractures, compression deformities, or suspicious bone ?? lesions. ?? There is moderate disc space narrowing at L5-S1. ?? Disc spaces otherwise appear preserved. ?? Normal facet alignment. ? No soft tissue abnormalities. ? XR/XR lumbar spine 2-3V ?? IMPRESSION: ?? 1. No acute findings of the lumbar spine. ?? 2. Moderate disc degeneration L5-S1. ? Electronically signed by: ??Shawn Weathers MD ??07/12/2024 01:03 PM EDT RP ? Dictated By: ?Shawn Weathers MD ? Signed By: ?<Electronically signed by Shawn Weathers MD in OV> ?07/12/24 1303 ? DD/ 1141 ? TD/TT: 07/12/24 1200 ? Commercial Truck Driver: ? Procedure Note Donxidonnagiselater, Image - 07/12/[address] [address] XRay Report Signed Patient: Starr Hong BMR# : [id number] : 1980Acct:[id number] Age/Sex: 43 / FADM Date: 07/12/24 Loc: .[facility] Attending Dr: Joann De La Cruz MD Ordering Physician: Joann Perez MD Date of Service: 07/12/24 Procedure(s): XR lumbar spine 2-3V Accession Number(s): [id number] cc: Joann Perez MD EXAMINATION: XR LUMBOSACRAL SPINE CLINICAL INFORMATION: pt with ongoing lower back pain COMPARISON: None available. TECHNIQUE: Three views of the lumbosacral spine. FINDINGS: There is a minimal levoconvex scoliosis apex at L3. There is a normal lordosis. There is no subluxation. There are no fractures, compression deformities, or suspicious bone lesions. There is moderate disc space narrowing at L5-S1. Disc spaces otherwise appear preserved. Normal facet alignment. No soft tissue abnormalities. XR/XR lumbar spine 2-3V IMPRESSION: 1. No acute findings of the lumbar spine. 2. Moderate disc degeneration L5-S1. Electronically signed by: Shawn Weathers MD 07/12/2024 01:03 PM EDT Dictated By: Shawn Weathers MD Signed By: <Electronically signed by Shawn Weathers MD in OV> 07/12/24 1303 DD/ 1141 TD/TT: 04/25/25 1200 Commercial Truck Driver: Joann De La Cruz MD IMG XR PROCEDURES Edited Result - Final * Cancelled Chemistry (07/12/2024 11:07 AM EDT) Cancelled Chemistry SEE NOTE [facility] Comment:SPECIMEN HEMOLYZED 07/12/2024 11:0 7 AM EDT 07/12/2024 1:06 PM EDT Joann De La Cruz MD HISTORICAL/NON OR DERABLE LABS Final Result [facility] [address] [place] [address] [phone] * CBC (07/12/2024 11:07 AM EDT) Pathologist [facility] White Blood Count 8.9 4.8 - 10.8 X10*3/uL [facility] Red Blood Count 4.78 4.20 - 5.50 X10*6/uL [facility] Hemoglobin 13.4 12.0 - 16.0 g/dl [facility] Hematocrit 41.1 37.0 - 47.0 % [facility] Mean Corpuscular Volume 86.0 80.0 - 98.0 fL [facility] Mean Corpuscular Hemoglobin 28.0 27.0 - 33.0 pg [facility] Mean Corpuscular HGB Conc 32.6 31.0 - 35.0 g/dl [facility] Red Cell Distribution Width 14.6 11.0 - 16.0 % [facility] Platelet Count 238 160 - 400 X10*3/uL [facility] Mean Platelet Volume 10.2 9.4 - 12.3 fL [facility] NRBC Pct Auto 0.0 0.0 - 0.2 /100WBC [facility] NRBC Abs Auto 0.000 0.0 - 0.012 X10*3/uL [facility] Blood Venous blood specimen / Unknown 07/12/2024 11:07 AM EDT 07/12/2024 1:06 PM EDT us Joann De La Cruz MD LAB BLOOD ORDERAB LES Final Result Performing Organization Address [facility] Co de Phone Number [facility] [address] [place] [phone] * Cancelled Urine (07/12/2024 12:00 AM EDT) Cancelled Urine SEE NOTE [facility] Comment:THE FOLLOWING TESTS WERE CANCELLED: UA AND MICROSREASON: NO GOLD TOP 07/12/2024 07/12/2024 us Joann De La Cruz MD HISTORICAL/NON OR DERABLE LABS Final Result Performing Organization Address [facility] Co de Phone Number [facility] [address] [place] [phone] * POCT Rapid Influenza B JAIMES ID NOW (05/07/2024 6:48 PM EST) Influenza B Negative Negative, Indeterminate [facility] QC Media Lot # [id number] [facility] Lot# Expiration Date [facility] Swab 05/07/2024 6:48 PM EST us Lea Horowitz MD POINT OF CARE TEST ENTER /EDIT ORDERABLES Final Result Performing Organization Address [facility] Co de Phone Number [facility] [address] [place] [phone] * POCT Rapid Influenza A JAIMES ID NOW (05/07/2024 6:47 PM EST) Influenza A Negative Negative, Indeterminate [facility] QC Media Lot # [id number] [facility] Lot# Expiration Date [facility] Swab 05/07/2024 6:47 PM EST Lea Horowitz MD POINT OF CARE TEST ENTER /EDIT ORDERABLES Final Result Performing Organization Address City/[facility]/ZIP Co de Phone Number [facility] [address] [place] [phone] * POCT Rapid Covid-19 JAIMES ID NOW (05/07/2024 6:47 PM EST) Pathologist [facility] Coronavirus Antigen PCR Negative Negative, Indeterminate, None Detected, Invalid, Specimen unsatisfactory for evaluation, Weakly Positive QC Media Lot # [id number] Lot# Expiration Date [id number] Swab 05/07/2024 6:47 PM EST Lea Horowitz MD POINT OF CARE TEST ENTER /EDIT ORDERABLES Final Result * POCT Urine (05/07/2024 6:41 PM EST) Pathologist [facility] Preg Test, Ur Negative Negative, Indeterminate, None Detected, Invalid, Specimen unsatisfactory for evaluation, Weakly Positive QC Media Lot # [id number] Lot# Expiration Date [id number] Urine 05/07/2024 6:41 PM EST Lea Horowitz MD POINT OF CARE TEST ENTER /EDIT ORDERABLES Final Result * Hepatitis C Antibody with Reflex to HCV, RNA, Quantitative, Real-Time PCR (04/21/2023 11:44 AM EST) [facility] Hepatitis C Antibody Nonreactive Nonreactive [facility] Comment:Antibodies to HCV no t detected; does not exclude early acuteHCV infection. Blood Venous blood specimen / Unknown 04/21/2023 11:44 AM EST 04/21/2023 1:10 PM EST Joann De La Cruz MD LAB BLOOD ORDERAB LES Final Result [facility] [address] [place] [phone] * HIV-1/2 Antigen and Antibodies, Fourth Generation, with Reflexes (04/21/2023 11:44 AM EST) Pathologist [facility] HIV AB/AG Nonreactive Nonreactive [facility] Comment:HIV-1 p24 Ag and/or HIV-1/HIV-2 Ab not detected.A test result that is nonreactive does not exclude thepossibility of exposure to or infection with HIV-1 and/orHIV-2. Nonreactive results in this assay for individualswith prior exposure to HIV-1 and/or HIV-2 may be due toantigen and antibody levels that are below the limit ofdetection of this assay.[employer] HIV Ag/Ab Combo assay result andsupplemental assay results should be interpreted inconjunction with the patient's clinical presentation,history and other laboratory results. If the results areinconsistent with clinical evidence, additional testing issuggested to confirm the result. Blood Venous blood specimen / Unknown 04/21/2023 11:44 AM EST 04/21/2023 1:10 PM EST us Joann De La Cruz MD LAB BLOOD ORDERAB LES Final Result [facility] [address] [place] [phone] * (ABNORMAL) Lipid Panel, Standard (04/21/2023 11:44 AM EST) Pathologist [facility] Triglycerides 103 <150 mg/dL [facility] Comment:Desirable Triglyceri de: less than 150 mg/dLBorderline High Triglyceride 150-199 mg/dLHigh Triglyceride: 200-499 mg/dLVery High Triglyceride: greater than or equal to 5OO mg/dL Cholesterol 179 <200 mg/dL [facility] Comment:Desirable Cholestero l: less than 200 mg/dLBorderline High Cholesterol: 200-239 mg/dLHigh Cholesterol: greater than 239 mg/dL LDL Cholesterol Calculated 107(H) <100 mg/dL [facility] Comment:Desirable LDL: less than 100 mg/dLNear Optimal/Above Optimal LDL: 110- 129 mg/dLBorderline High LDL: 130-159 mg/dLHigh LDL: 160-189 mg/dLVery High LDL: greater than or equal to 190 mg/dL HDL Cholesterol 52 >40 mg/dL [facility] Comment:Desirable HDL: great er than 40 mg/dL Note: This HDL assay may give artificially low results in patients with liver disease. Blood Venous blood specimen / Unknown 04/21/2023 11:44 AM EST 04/21/2023 1:10 PM EST us Joann De La Cruz MD LAB BLOOD ORDERAB LES Final Result [facility] [address] [place] [phone] from Last 3 Months or Most Recently Relevant to Health Maintenance Insurance [facility] STANDARD DENTAL-[facility] MEDICAID STAND ADULT Care Teams Regulatory Affairs Director Relationship Specialty Start Date End Date Joann Perez MD [address] [place] [phone] PCP - General Internal Medicine 03/16/23
--- OUTSIDE RECORDS SUMMARY | 2024-07-18 09:13 | XMS_ITS | Encounter Summary ---
Author Organization [employer] Address [address] [place] [address] Care Team Providers Care Retail Grocer Name Role Phone Joann Perez MD Primary Care Pro vider Encounter Details Date Type Department Care Team (Late st Contact Info) Description 05/10/2024 Orders Only [facility] [address] [place], [place] [phone] Kelsie Patino MD [address] [place], [place] [phone] Left upper quadrant abdominal pain Social History [...] 9:45 AM EDT Office Visit [facility] [address] [place] [phone] Joann Perez MD [address] [place] [phone] 09/17/2024 9:45 AM EDT Office Visit [address] [address] Joann Perez MD [address] [place] [phone] documented as of this encounter Visit Diagnoses Diagnosis Left upper quadrant abdominal pain documented in this encounter Additional Health Concerns Assessment Noted Time PHQ-9 Depression Total Score: 6 01/30/20 24 9:27 AM EST documented as of this encounter Care Teams Retail Grocer Relationship Specialty Start Date End Date Joann Perez MD [address] [place] [phone] PCP - General Internal Medicine 03/16/23 documented as of this encounter
--- OUTSIDE RECORDS SUMMARY | 2024-07-18 09:13 | XMS_ITS | Encounter Summary ---
Author Organization [employer] Address [address] [place] [address] Care Team Providers Care Early Interventionist Name Role Phone Joann Perez MD Primary Care Pro vider Reason for Visit * Reason Onset Date Comments Results 07/13/2024 Lab Orders 07/13/2024 Encounter Details Date Type Department Care Team ([facility] st Contact Info) Description 07/13/2024 Telephone [facility] [address] [place] [address] Kasey Vargas RN [address] [place] [address] Results; Lab Orders Social History Tobacco Use Types Packs/Day Years [...] as of this encounter Miscellaneous Notes * Addendum Note - Baldo Elias MD - 07/15/2024 4:46 PM EDTAddended by: BALDO ELIAS on: 07/15/2024 04:46 PM Modules accepted: Orders * Addendum Note - Tabitha Robert RN - 07/15/2024 12:25 PM EDTAddended by: TABITHA ROBERT on: 07/15/2024 12:25 PM Modules accepted: Orders * Telephone Encounter - Tabitha Robert RN - 07/15/2024 12:16 PM EDT Telephone call to pt using [employer] aquatics director Babatunde #[id number]. Advised pf that abdominal xray was normal and lumbar xray showed degenerative disc changes. Advised her that PCP recommends physical therapyas referred last year, offered phone number but pt reports having it. Informed her that urine sample and lab work was not run due to lab error. Informed her that at her convenience, PCP recommends torepeat labs and UA. Pt verbalized understanding. Pended UA and CMP orders to PCP per request below. * Telephone Encounter - Kasey Vargas RN - 07/13/2024 9:20 AM EDT Telephone call placed to pt regarding below XR results and the need to repeat labs and urine per below messages. No answer and v/m is not set up. Will retask Please advise pt to repeat chem given states hemolyzed at lab -please help ordering new test when able to inform pt -thanks Also UA was not done at lab -says no gold tube -please advise also pt to give new clean urine sample and please help w new UA order if pt agrees to repeat test -thanks * Telephone Encounter - Kasey Vargas RN - 07/13/2024 9:20 AM EDT ----- Message from Joann De La Cruz MD sent at 07/12/2024 4:39 PM EDT ----- Please inform pt that her abd XR is normal and lumbar XR is showing Moderate disc degeneration L5-S1. -encourage again pt to see PT referred before Thanks documented in this encounter Plan of Treatment Upcoming Encounters Date Type Department Care Team (Late st Contact Info) Description 08/09/2024 9:45 AM EDT Office Visit [address] [address] Joann Perez MD [address] [place] [phone] 09/17/2024 9:45 AM EDT Office Visit [address] [address] Joann Perez MD [address] [place] [phone] Scheduled Orders Name Type Priority Associated Diagnoses Orde r Schedule Urinalysis, Complete, with Reflex to Culture Lab Routine Acute right-sided low back pain, unspecified whether sciatica present Expected: 07/15/2024 (Approximate), Expires: 07/15/2025 Comprehensive Metabolic Panel Lab Routine BAH (dyspnea on exertion) Expected: 07/15/2024 (Approximate), Expires: 07/15/2025 documented as of this encounter Visit Diagnoses Diagnosis Acute right-sided low back pain, unspecified whether sciatica present BAH (dyspnea on exertion) Other dyspnea and respiratory abnormality documented in this encounter Additional Health Concerns Assessment Noted Time PHQ-9 Depression Total Score: 6 01/30/20 24 9:27 AM EST documented as of this encounter Care Teams Early Interventionist Relationship Specialty Start Date End Date Joann Perez MD [address] [place] [phone] PCP - General Internal Medicine 03/16/23 documented as of this encounter
--- OUTSIDE RECORDS SUMMARY | 2024-07-18 09:13 | XMS_ITS | Encounter Summary ---
Author Organization [employer] Address [address] [place] [address] Care Team Providers Care Livestock Exhibitor Name Role Phone Joann Perez MD Primary Care Pro vider Encounter Details Date Type Department Care Team (Late st Contact Info) Description 07/18/2024 Telephone [facility] [address] [place] [address] Joann Perez MD [address] [place] [address] Social History Tobacco Use Types Packs/Day Years [...] encounter Miscellaneous Notes * Telephone Encounter - Susu Jono - 07/18/2024 9:06 AM EDT Patient requestiing lab results. PCP Dr. Samaniego. Call back number is [phone]. documented in this encounter Plan of Treatment Upcoming Encounters Date Type Department Care Team (Late st Contact Info) Description 08/09/2024 9:45 AM EDT Office Visit [facility] [address] [place] [phone] Joann Perez MD [address] [place] [phone] 09/17/2024 9:45 AM EDT Office Visit [facility] [address] [place] [phone] Joann Perez MD [address] [place] [phone] documented as of this encounter Visit Diagnoses Not on filedocumented in this encounter Additional Health Concerns Assessment Noted Time PHQ-9 Depression Total Score: 6 01/30/20 24 9:27 AM EST documented as of this encounter Care Teams Livestock Exhibitor Relationship Specialty Start Date End Date Joann Perez MD [address] [place] [phone] PCP - General Internal Medicine 03/16/23 documented as of this encounter
[2024-07-18 11:39] LABS: Appearance Urine Clear; Color Urine Yellow; Glucose Urine UA Negative (Negative); Leukocyte Esterase Urine Negative (Negative); Nitrite Urine Negative (Negative); UMIC TRIGGER UACC YES; Urine Blood Moderate (2+) (Negative); Urine Ketones Negative (Negative); Urine Protein Negative (Neg-Trace)
[2024-07-18 11:46] LABS: Bacteria Urine Trace (None Seen); Hyaline Casts Urine 0-2 /LPF (0-2); WBC Urine 0-5 /HPF (0-5)
[2024-07-18 12:02] LABS: Alanine Aminotransferase 36 U/L (0-31); Albumin Level 4.1 g/dL (3.5-5.0); Alkaline Phosphatase 74 U/L (39-117); Anion Gap 10 (12-20); Aspartate Amino Transferase 31 U/L (5-31); Bilirubin Total 0.6 mg/dL (0.0-1.0); Blood Urea Nitrogen 10 mg/dL (9-16); Calcium 8.6 mg/dL (8.4-10.2); Carbon Dioxide 24 mmol/L (22-29); Chloride 108 mmol/L (96-108); Estimated Glomerular Filt Rate > 60; Glucose Random 110 mg/dL (60-115); Potassium 3.9 mmol/L (3.3-5.1); Sodium 138 mmol/L (135-145); Total Protein 6.9 g/dL (6.5-8.0)
[2024-07-18 12:11] LABS: Alanine Aminotransferase 36 U/L (0-31); Albumin Level 4.1 g/dL (3.5-5.0); Alkaline Phosphatase 74 U/L (39-117); Anion Gap 12 (12-20); Aspartate Amino Transferase 31 U/L (5-31); Bilirubin Total 0.6 mg/dL (0.0-1.0); Blood Urea Nitrogen 10 mg/dL (9-16); Calcium 8.7 mg/dL (8.4-10.2); Carbon Dioxide 24 mmol/L (22-29); Chloride 108 mmol/L (96-108); Estimated Glomerular Filt Rate > 60; Glucose Random 101 mg/dL (60-115); Sodium 140 mmol/L (135-145)
[2024-07-18 12:21] LABS: Free T4 (Free Thyroxine) 0.87 ng/dL (0.71-1.85)
[2024-07-18 12:23] LABS: Thyroid Stimulating Hormone 2.32 uIU/mL (0.32-4.0)
== END 2024-07-18 08:50 | disposition home or self-care (01) ==
LOC: HO.HHCL 08:49
PROVIDERS: Student in an Organized Health Care Education/Training Program; Visit Provider Internal Medicine
DX: R06.09 Other forms of dyspnea (principal); E06.3 Autoimmune thyroiditis; M54.50 Low back pain, unspecified
CPT/HCPCS: 36415; 80053; 81001; 84439; 84443

== ENCOUNTER 2024-08-09 09:37 | Outpatient (REF) | payer MEDICAID, SELFPAY ==
--- OUTSIDE RECORDS SUMMARY | 2024-08-09 09:51 | XMS_ITS | Encounter Summary ---
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 Blood Venous blood specimen / Unknown 01/30/2024 10:21 AM EST 01/30/2024 11:32 AM EST us Kelsie Patino MD LAB BLOOD ORDERABLES Final Res ult [facility] [address] [place] [address] [phone] documented in this encounter Visit Diagnoses Diagnosis 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- Primary documented in this encounter Additional Health Concerns Assessment Noted Time PHQ-9 Depression Total Score: 15 023 2:11 PM EST documented as of this encounter Care Teams Filenet Developer Relationship Specialty Start Date End Date Joann Perez MD [address] [place] [address] PCP - General Internal Medicine 03/16/23 documented as of this encounter
[2024-08-09 11:13] LABS: Appearance Urine Clear; Color Urine Yellow; Glucose Urine UA Negative (Negative); Leukocyte Esterase Urine Negative (Negative); Nitrite Urine Negative (Negative); PH 5.5 (5.0-9.0); UMIC TRIGGER UACC YES; Urine Blood Moderate (2+) (Negative); Urine Ketones Negative (Negative); Urine Protein Negative (Neg-Trace)
[2024-08-09 11:25] LABS: Bacteria Urine None Seen (None Seen); Hyaline Casts Urine 0-2 /LPF (0-2); Squamous Epithelial Cell Urine 0-2 /HPF (0-2); WBC Urine 0-5 /HPF (0-5)
[2024-08-09 18:05] LABS: Bacterial Vaginosis PCR POSITIVE (Negative); Candida Group PCR NOT DETECTED (Not Detect); Candida glab krusei PCR NOT DETECTED (Not Detect); Trichomonas vaginalis PCR NOT DETECTED (Not Detect)
== END 2024-08-09 09:38 | disposition home or self-care (01) ==
LOC: HO.HHCL 09:37
PROVIDERS: Student in an Organized Health Care Education/Training Program; Visit Provider Internal Medicine
DX: N89.8 Other specified noninflammatory disorders of vagina (principal); R31.9 Hematuria, unspecified
CPT/HCPCS: 81001; 81515

== ENCOUNTER → 2024-08-15 07:59 | Outpatient (BNV) | payer MEDICAID, SELFPAY | PROVIDERS: PCP Student in an Organized Health Care Education/Training Program; Visit Provider Internal Medicine Cardiovascular Disease | DX: I42.2 Other hypertrophic cardiomyopathy (principal) | CPT/HCPCS: 93306 ==

== ENCOUNTER → 2024-08-15 08:02 | Outpatient (REF) | payer MEDICAID, SELFPAY ==
--- NOTE | 2024-08-15 07:59 | CA_ITS ---
Transthoracic Echocardiogram Patient (Last, First, Middle): Starr Hong Rut Gender: Female Date of : 1980 Age: 44 Procedure Date: 08/15/2024 Procedure Type: Transthoracic Echocardiogram Location: OP Height: 154.94 cm Weight: 73.48 kg BSA: 1.73 m2 Heart Rate: bpm BP: 110 / 82 mmHg Personal Shopper: JEREMY Referring MD: Joann De La Cruz MD Configurator: Mohit Wilkerson MD Symptoms: R06.09 BAH Study Quality: Adequate ECG Rhythm: Sinus Conclusions: - Essentially normal study Findings Left Ventricle Normal left ventricular size, thickness, and systolic function. The visually estimated ejection fraction is between 60-65%. Spectral Doppler is indicative of a normal filling pattern. Right Ventricle Normal right ventricular cavity size and systolic function. Atria Both atria are normal in size. There is lipomatous hypertrophy of the interatrial septum. Interatrial shunt cannot be excluded. Aortic Valve Normal aortic valve structure and function. There is no aortic valve stenosis. There is no aortic valve regurgitation. Mitral Valve Normal mitral valve structure and function. There is trace mitral valve regurgitation. There is no mitral valve stenosis. Pulmonic Valve The pulmonic valve is likely normal. Tricuspid Valve Normal tricuspid valve structure. There is mild tricuspid valve regurgitation. The right ventricular systolic pressure is normal. The right ventricular systolic pressure is 24 mmHg. Normal right atrial pressure. There is no evidence of pulmonary hypertension. Great Vessels All visible segments of the aorta are normal in size. The pulmonary artery was not well visualized. There is no dilatation of the ascending aorta measuring 2.70 cm. Venous The inferior vena cava is normal in size and collapses greater than 50% with inspiration. Pericardium/Pleural There is no evidence of pericardial effusion. Prior Study Comparison No prior study available for comparison. Recommendations, Care & Conclusions Recommend contrast study to evaluate intracardiac shunting. Measurements 2D Linear Measurements IVSd: 0.83 0.6-0.9/0.6-1.0 cm LVIDd: 4.45 3.9-5.3/4.2-5.9 cm LVIDd Index: 2.57 2.4-3.2/2.2-3.1 cm/m2 LVIDs: 2.98 2.0-3.6 cm LVPWd: 0.80 0.7-1.1 cm LA Diam: 3.30 2.7-3.8/3.0-4.0 cm LAIDs Index: 1.91 1.5-2.3 cm/m2 LV Mass: 141.41 67-162/88-224 g LV Mass Index: 81.74 43-95/49-115 g/m2 LVOT Diam: 2.00 3.0+(-)1.3 cm 2D Systolic Function EF 4C: 67.70 >55% EF 2C: 61.70 >55% EF BiP: 65.10 >55% Mitral Valve MV Pk E: 0.76 MV PK A: 0.41 MV Decel Time: 320.00 E/A: 1.90 E'Lateral: 14.70 E'Medial: 10.10 E/E' Med: 7.50 E/E' Lat: 5.20 PHT: 94.00 MVA PHT: 2.34 Decel [place]: 2.37 Aortic Valve AoV Pk Sancho: 1.12 AoV Mn Sancho: 0.78 AoV VTI: 0.27 AoV Pk Grad: 5.00 Aov Mn Grad: 3.00 [place] Cont.VTI: 2.38 LVOT LVOT Pk Sancho: 0.95 LVOT Mn Sancho: 0.62 LVOT VTI: 0.20 LVOT Pk Grad: 4.00 LVOT Mn Grad: 2.00 LVOT Diam: 2.00 LVOT Area: 3.14 Diastolic Function MV Pk E: 0.76 MV Pk A: 0.41 E/A: 1.90 E'Medial: 10.10 E/E' Med: 7.50 E' Laterial: 14.70 E/E' Lat: 5.20 Right Ventricle TAPSE (mm): 22.00 TVS' Sancho: 12.50 Tricuspid Valve TR Pk Sancho: 2.31 TR Pk Grad: 21.00 RA Press: 3.00 RVSP: 24.00 Great Vessels Aorta Sinus of Valsalva: 2.79 2.0-3.5 cm Ao Asc: 2.70 2.1-3.4 cm Ao Arch: 2.40 Updated in Other Vendor System with Status of Final Mohit Wilkerson MD electronically signed on 08/16/2024 8:43:23 AM with status of Final
--- OUTSIDE RECORDS SUMMARY | 2024-08-15 08:05 | XMS_ITS | Encounter Summary ---
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) [...] Description 09/17/2024 9:45 AM EDT Office Visit [facility] [address] [place] [address] Joann Perez MD [address] [place] [address] documented as of this encounter Procedures Procedure Name Priority Date/Time Associated Diagnosis Comments TSH W/REFLEX TO FT4 Routine 01/30/2024 1 0:21 AM EST 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 documented in this encounter Results * (ABNORMAL) TSH W/Reflex to FT4 (01/30/2024 10:21 AM EST) TSH reflex Free T4 8.45(H) 0.32 - 4.0 uIU/mL [facility] Blood Venous blood specimen / Unknown 01/30/2024 10:21 AM EST 01/30/2024 11:32 AM EST us Kelsie Patino MD LAB BLOOD ORDERABLES Final Res ult [facility] [address] [place] [address] [phone] documented in this encounter Visit Diagnoses Diagnosis 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- Primary documented in this encounter Additional Health Concerns Assessment Noted Time PHQ-9 Depression Total Score: 15 023 2:11 PM EST documented as of this encounter Care Teams Artificial Stone Applicator Relationship Specialty Start Date End Date Joann Perez MD [address] [place] [address] PCP - General Internal Medicine 03/16/23 documented as of this encounter
== END ==
LOC: HO.CARD 08:02
PROVIDERS: PCP Student in an Organized Health Care Education/Training Program; Visit Provider Student in an Organized Health Care Education/Training Program
DX: R06.09 Other forms of dyspnea (principal)
CPT/HCPCS: 93306

== ENCOUNTER 2024-08-23 16:12 | Outpatient (REF) | payer MEDICAID, SELFPAY ==
--- NOTE | ~2024-08-23 | US_ITS ---
EXAMINATION: US RETROPERITONEAL COMPLETE (RENAL) CLINICAL INFORMATION: Sensation above the umbilicus and umbilical area. Question hernia. COMPARISON: None available. TECHNIQUE: Real-time imaging of the kidneys and bladder. FINDINGS: RIGHT KIDNEY: 12.5 x 5.4 x 4.7 cm (SAG x AP x TRV). The kidney is normal in size, contour, and echogenicity. Renal cortical thickness is normal. No calculi or focal parenchymal lesions. No hydronephrosis. LEFT KIDNEY: 11.3 x 5.1 x 4.9 cm (SAG x AP x TRV). The kidney is normal in size, contour, and echogenicity. Renal cortical thickness is normal. No calculi or focal parenchymal lesions. No hydronephrosis. BLADDER: The bladder bladder is nondistended and has been rescheduled for another day. US/US retroperitoneal comp IMPRESSION: Unremarkable renal ultrasound. No echogenic stones or hydronephrosis seen. Electronically signed by: Duncan Bolden MD 08/26/2024 07:29 AM EDT
== END 2024-08-23 16:13 | disposition home or self-care (01) ==
LOC: HO.US 16:12
PROVIDERS: PCP Student in an Organized Health Care Education/Training Program; Visit Provider Student in an Organized Health Care Education/Training Program
DX: R10.9 Unspecified abdominal pain (principal); Z87.442 Personal history of urinary calculi
CPT/HCPCS: 76770

== ENCOUNTER → 2024-08-23 16:15 | Outpatient (BNV) | payer MEDICAID, SELFPAY | PROVIDERS: PCP Student in an Organized Health Care Education/Training Program; Visit Provider Radiology Diagnostic Radiology | DX: R10.33 Periumbilical pain (principal) | CPT/HCPCS: 76770 ==